=== PATIENT | male | born 1945 | race Caucasian/White ===

== ENCOUNTER → 2018-09-30 | Outpatient (CLI) | payer MEDICARE, BC ==
[~2018-09-30] MED LIST: ASPI-1 PO; ASPI81TA26 PO; ASPIRIN 325MG; CLOP75TA2 PO; CRES20TA2 PO; EMLA CREAM 5GM (LIDOCAINE/PRILOCAINE) As Ordered ONE; FURO40TA2 PO; METO1TAB32 PO; NITR0.1D10 TD; NITR4TASL SL; POTA10TA67 PO; SERT-141 PO; [UNRECOGNIZED DRUG - CODE] IM
--- NOTE | 2018-09-30 16:55 | REP ---
BILATERAL LOWER EXTREMITY LYMPHOSCINTIGRAPHY The procedure was performed under the direct supervision of Dr. Matias. The risks and benefits of the procedure were explained to the patient and informed consent was obtained. EMLA cream was applied to the injection sites 45 minutes prior to injection. The web spaces between the first and second and second and third toes bilaterally were prepped and draped in a sterile fashion. The left foot was addressed first. 1.031 mCi of technetium 99 filtered sulfur colloid was injected subdermally, using a protocol of two injections in the web space between the first and second toes and two injections in the web space between the second and third toes. The right foot was then addressed. 1.017 mCi of technetium 99 filtered sulfur colloid was injected subdermally, using a protocol of two injections in the web space between the first and second toes and two injections in the web space between the second and third toes. The patient tolerated the procedure well and there were no immediate complications. Lymphoscintigraphy findings: Immediate, two hour delayed, and four hour delayed postinjection lymphoscintigraphy imaging is acquired. The immediate images were of the lower extremities. The two hour and four hour delayed images were whole-body anterior and posterior images. Immediate postinjection images show slight asymmetric flow in the lymphatic channels right slightly behind left. There is early neema uptake in each groin however. Lymphatic channels visualized in the right calf appear a little larger and closer together than those on the left. At 2 hours the lymphoscintigraphy agent ascends in the medial thigh channels symmetrically. There is symmetric uptake in bilateral inguinal lymph nodes. Iliac neema uptake is observed of and for hour.. The for hour delayed images show a tiny focus of uptake at the level of the thoracic duct in the left clavicular region. Impression: Slightly asymmetric lymphatic channels in the lower legs, right slightly more prominent and closer to one another. Otherwise normal and symmetrical lymphoscintigraphy. Reviewed by ANAND Nagel 09/30/2018 10:56 A Edited and Electronically Signed by Lars Matias MD 10/01/2018 09:11 A
== END ==
LOC: M RADPRO 06:58 → EDSTATUS 08:30
PROVIDERS: ATTEND Surgery Plastic and Reconstructive Surgery
DX: I89.0 Lymphedema, not elsewhere classified (principal)
CPT/HCPCS: 78195; A9541

== ENCOUNTER → 2021-03-16 | Outpatient (CLI) | payer MEDICARE, BC ==
[~2021-03-16] MED LIST changes: +ALLO300T2 PO; +CARB25TA9 PO; -EMLA CREAM 5GM (LIDOCAINE/PRILOCAINE) As Ordered ONE; +KP V1TAB2 PO; +ROSU20TA5 PO; +SERT50TA29
== END ==
LOC: M LABSMTC 09:55
PROVIDERS: ATTEND Anesthesiology
DX: Z20.828 Contact with and (suspected) exposure to other viral communicable diseases (principal); Z11.59 Encounter for screening for other viral diseases

== ENCOUNTER 2021-03-18 08:36 | Day surgery (SDC) | payer MEDICARE, BC ==
[~2021-03-18] VITALS: Ht 188 cm; Wt 124.3 kg
[~2021-03-18 08:36] MED LIST changes: +NS 1,000 ML IV ONE
[2021-03-18] MEDS ORDERED: LIDOCAINE 2% 100MG/5ML SDV (FOR ANES.) As Ordered ONE (09:58)
[2021-03-18] MEDS ORDERED: propofoL 500 MG/50 ML VIAL As Ordered ONE (09:58)
--- NOTE | 2021-03-18 10:20 | ROOR ---
Patient Name: Nicholas Carnes Procedure Date: 03/18/2021 9:57 AM Date of : 1945 Age: 75 Room: [facility] Gender: Male Note Status: Finalized Procedure: Total Colonoscopy to Cecum Indications: High risk colon cancer surveillance: Personal history of colonic polyps, Last colonoscopy: 2015 Providers: Maxwell Jay MD Referring MD: Ned Hernandez MD Requesting Provider: Medicines: Monitored Anesthesia Care Complications: No immediate complications. Procedure: Pre-Anesthesia Assessment: - The heart rate, respiratory rate, oxygen saturations, blood pressure, adequacy of pulmonary ventilation, and response to care were monitored throughout the procedure. The Colonoscope was introduced through the anus and advanced to the cecum, identified by appendiceal orifice and ileocecal valve. The colonoscopy was performed without difficulty. The patient tolerated the procedure well. The quality of the bowel preparation was excellent. Findings: The perianal and digital rectal examinations were normal. Non-bleeding internal hemorrhoids were found during retroflexion. The hemorrhoids were small and Grade I (internal hemorrhoids that do not prolapse). No other significant abnormalities were identified in a careful examination of the remainder of the colon. The exam was otherwise without abnormality on direct and retroflexion views. Impression: - Non-bleeding internal hemorrhoids. - The examination was otherwise normal on direct and retroflexion views. - No specimens collected. - The exam was otherwise normal to the cecum. Recommendation: - Patient has a contact number available for emergencies. The signs and symptoms of potential delayed complications were discussed with the patient. Return to normal activities tomorrow. Written discharge instructions were provided to the patient. - High fiber diet. - Discharge patient to home. - Continue present medications. - Repeat colonoscopy is not recommended for surveillance. - Return to referring physician. - The findings and recommendations were discussed with the patient. Procedure Code(s): --- Professional --- G0105, Colorectal cancer screening; colonoscopy on individual at high risk Diagnosis Code(s): --- Professional --- Z86.010, Personal history of colonic polyps K64.0, First degree hemorrhoids CPT copyright 2019 [employer]. All rights reserved. The codes documented in this report are preliminary and upon medical billing coder review may be revised to meet current compliance requirements. Maxwell Jay MD Maxwell Jay MD 03/18/2021 10:20:24 AM Electronically signed by Maxwell Jay MD Number of Addenda: 0 Note Initiated On: 03/18/2021 9:57 AM Estimated Blood Loss: Estimated blood loss: none.
[2021-03-18 10:45] VITALS: BP 161/81
== END 2021-03-18 10:54 | disposition home or self-care (01) ==
LOC: M OPP 08:36
PROVIDERS: ATTEND Internal Medicine Gastroenterology
DX: Z12.11 Encounter for screening for malignant neoplasm of colon (principal); Z86.010 Personal history of colon polyps; K64.0 First degree hemorrhoids; G47.30 Sleep apnea, unspecified; Z79.82 Long term (current) use of aspirin; Z79.899 Other long term (current) drug therapy; Z88.0 Allergy status to penicillin; Z88.1 Allergy status to other antibiotic agents; Z86.74 Personal history of sudden cardiac arrest; Z87.891 Personal history of nicotine dependence; Z95.0 Presence of cardiac pacemaker

== ENCOUNTER → 2024-03-25 | Outpatient (REF) | payer MEDICARE, BC ==
[~2024-03-25] MED LIST changes: +LEVO1TAB39; -NS 1,000 ML IV ONE; -ROSU20TA5 PO; +ROSU20TA61 PO
== END ==
LOC: M SFHCPLAZ 12:54
PROVIDERS: ATTEND Internal Medicine Infectious Disease
DX: L03.115 Cellulitis of right lower limb (principal)

== ENCOUNTER → 2024-04-17 | Outpatient (CLI) | payer MEDICARE, BC ==
[~2024-04-17] MED LIST changes: +LIDOCAINE 1% MDV 20ML VIAL As Ordered ONE; -ROSU20TA61 PO; +ROSU20TA86 PO
[2024-04-17 12:20] VITALS: TEMP 98
[2024-04-17 13:10] VITALS: BP 122/60; O2SAT 96
[2024-04-17 13:46] LABS: BASO % 0.2 % (0.0-1.0); EOS # 0.1 10^3/uL (0.0-0.5); EOS % 1.2 % (0.0-3.0); HEMATOCRIT 38.8 % (42.0-52.0); HEMOGLOBIN 13.1 g/dl (13.5-17.5); LYMPH # 1.1 10^3/uL (1.5-5.0); LYMPH % 12.8 % (24.0-44.0); MEAN CORPUSCULAR HGB CONC 33.8 g/dl (32.0-36.5); MEAN CORPUSCULAR VOLUME 94.9 fl (80.0-96.0); MONO # 0.7 10^3/uL (0.0-0.8); MONO % 7.6 % (2.0-8.0); NEUTROPHILS # 6.9 10^3/uL (1.5-8.5); NEUTROPHILS % 77.9 % (36.0-66.0); PLATELET COUNT, AUTOMATED 197 10^3/uL (150-450); RED BLOOD COUNT 4.09 10^6/uL (4.30-6.10); WHITE BLOOD COUNT 8.9 10^3/uL (4.0-10.0)
== END ==
LOC: M IRPRO 12:04
PROVIDERS: ATTEND Specialist
DX: D47.2 Monoclonal gammopathy (principal)

== ENCOUNTER 2024-06-16 11:48 | Day surgery (SDC) | payer MEDICARE, BC ==
[~2024-06-16] VITALS: Ht 185.4 cm; Wt 120.3 kg
[~2024-06-16 11:48] MED LIST changes: +AZIT-12 PO; +GABA-1171 PO; -LIDOCAINE 1% MDV 20ML VIAL As Ordered ONE; +SERT50TA29 PO
[2024-06-16] MEDS ORDERED: fentaNYL 100 MCG/2 ML INJECTION As Ordered ONE (14:28)
[2024-06-16] MEDS ORDERED: propofoL 200 MG/20 ML VIAL As Ordered ONE (14:39)
[2024-06-16] MEDS ORDERED: ePHEDrine SULFATE 25 MG/5 ML(5MG/ML) SYRINGE As Ordered ONE (14:40)
[2024-06-16] MEDS ORDERED: LIDOCAINE 2% 100MG/5ML SDV (FOR ANES.) As Ordered ONE (14:40)
[2024-06-16 14:52] VITALS: TEMP 97.1
[2024-06-16 15:02] VITALS: BP 138/65; O2SAT 99
== END 2024-06-16 15:11 | disposition home or self-care (01) ==
LOC: M OPP 11:48
PROVIDERS: ATTEND Internal Medicine Gastroenterology
DX: K31.A19 Gastric intestinal metaplasia without dysplasia, unspecified site (principal); K22.70 Barrett's esophagus without dysplasia; K21.00 Gastro-esophageal reflux disease with esophagitis, without bleeding; K22.89 Other specified disease of esophagus; K44.9 Diaphragmatic hernia without obstruction or gangrene; K31.89 Other diseases of stomach and duodenum; D50.9 Iron deficiency anemia, unspecified; I25.10 Atherosclerotic heart disease of native coronary artery without angina pectoris; I10 Essential (primary) hypertension; I25.2 Old myocardial infarction; E78.5 Hyperlipidemia, unspecified; R60.0 Localized edema; G62.9 Polyneuropathy, unspecified; G47.30 Sleep apnea, unspecified; Z85.51 Personal history of malignant neoplasm of bladder; Z87.891 Personal history of nicotine dependence; Z88.1 Allergy status to other antibiotic agents; Z79.82 Long term (current) use of aspirin; Z79.899 Other long term (current) drug therapy
CPT/HCPCS: 43239; 88305; J3010

== ENCOUNTER → 2024-07-10 | Outpatient (CLI) | payer MEDICARE, BC | LOC: M PLARAD 11:57 | PROVIDERS: ATTEND Physician Assistant Surgical | DX: M17.0 Bilateral primary osteoarthritis of knee (principal) ==

== ENCOUNTER 2025-06-04 11:53 | Outpatient (CLI) | payer MEDICARE, BC ==
[~2025-06-04] VITALS: Ht 185.4 cm; Wt 111.8 kg
[~2025-06-04 11:53] MED LIST changes: +ALBUTEROL SULFATE 2.5 MG/0.5 ML INH CONCENTRATE NEB SOLN INH PRN; +EPINEPHrine INJ 1 MG/ML 1ML AMP IM PRN; +OMEP40CA5 PO; +POTA-232 PO; -POTA10TA67 PO; +diphenhydrAMINE 50 MG/ML VIAL IV PRN
[2025-06-04] MEDS ORDERED: diphenhydrAMINE 50 MG/ML VIAL IV ONE (12:00)
[2025-06-04] MEDS ORDERED: ACETAMINOPHEN 650MG PO PRIOR TO INFUSION PO ONE (12:00)
[2025-06-04 12:10] VITALS: BP 126/58; O2SAT 98
[2025-06-04] MEDS: IRON SUCROSE 300 MG in NS 250 ML IV ONE (12:10)
[2025-06-04 14:15] VITALS: BP 156/76; O2SAT 100
== END 2025-06-04 14:50 ==
LOC: M INFU 11:53
PROVIDERS: ATTEND Family Medicine
DX: D50.9 Iron deficiency anemia, unspecified (principal); Z88.1 Allergy status to other antibiotic agents
CPT/HCPCS: 96365; 96366; J1756

== ENCOUNTER 2025-06-11 11:43 | Outpatient (CLI) | payer MEDICARE, BC ==
[~2025-06-11] VITALS: Ht 185.4 cm; Wt 109.0 kg
[2025-06-11] MEDS ORDERED: ACETAMINOPHEN 650MG PO PRIOR TO INFUSION PO ONE (12:00)
[2025-06-11] MEDS ORDERED: diphenhydrAMINE 25MG IV PRIOR TO INFUSION IV ONE (12:00)
[2025-06-11] MEDS: IRON SUCROSE 300 MG in NS 250 ML IV ONE (12:10)
[2025-06-11 13:55] VITALS: BP 159/69; O2SAT 97
== END 2025-06-11 13:55 | disposition home or self-care (01) ==
LOC: M INFU 11:43
PROVIDERS: ATTEND Family Medicine
DX: D50.9 Iron deficiency anemia, unspecified (principal); Z88.2 Allergy status to sulfonamides
CPT/HCPCS: 96365; 96366; J1756